=== PATIENT | female | born 1980 | race Caucasian/White ===

== ENCOUNTER 2017-12-06 01:17 | Emergency (ER) | payer OTHER ==
[~2017-12-06] VITALS: Ht 154.9 cm; Wt 93.0 kg
[2017-12-06 07:39] VITALS: BP 139/80
== END 2017-12-06 10:46 | disposition home or self-care (01) ==
LOC: ER 02:02
DX: B34.9 Viral infection, unspecified (principal)
CPT/HCPCS: 99283

== ENCOUNTER 2017-12-07 10:34 | Emergency (ER) | payer MEDICAID, OTHER ==
[~2017-12-07] VITALS: Ht 157.5 cm; Wt 93.0 kg
[2017-12-07 18:25] VITALS: BP 133/80
== END 2017-12-07 20:11 | disposition home or self-care (01) ==
LOC: ER 10:58
DX: J02.8 Acute pharyngitis due to other specified organisms (principal); J20.9 Acute bronchitis, unspecified; Z88.6 Allergy status to analgesic agent
CPT/HCPCS: 99283